=== PATIENT | male | born 1970 | race Caucasian/White ===

== ENCOUNTER 2018-06-24 21:10 | Emergency (ER) | payer OTHER ==
[2018-06-24] MEDS ORDERED: LORazepam 1MG TABLET PO ONE (21:30)
[2018-06-24] MEDS ORDERED: ONDANSETRON ODT 4 MG ONE (21:52)
--- NOTE | 2018-06-24 21:55 | NUR ---
PT MEDICATED FOR EMESIS WITH ZOFRAN.
[2018-06-24] MEDS ORDERED: ONDANSETRON ODT 4 MG PO ONE (22:00)
[2018-06-24] MEDS ORDERED: LORazepam 1MG TABLET ONE (22:26)
--- NOTE | 2018-06-24 22:30 | NUR ---
PT FRIEND WOULD LIKE TO LEAVE NUMBER FOR DISPO. NAME OF LARY
[2018-06-24 22:31] VITALS: BP 128/70
--- NOTE | 2018-06-24 23:26 | NUR ---
PT FEELING MUCH BETTER AND STATES "I THINK MY MIND IS RIGHT NOW." NOTIFIED.
== END 2018-06-24 23:40 | disposition home or self-care (01) ==
LOC: ED 23:35
DX: F10.129 Alcohol abuse with intoxication, unspecified (principal); F41.9 Anxiety disorder, unspecified; I10 Essential (primary) hypertension; M10.9 Gout, unspecified
CPT/HCPCS: 93005; 99283; Q0162